=== PATIENT | female | born 1955 | race African-American/Black ===

== ENCOUNTER 2021-01-06 04:04 | Emergency (ER) | payer OTHER, MEDICARE ==
[~2021-01-06] VITALS: Ht 165.1 cm; Wt 100.0 kg
[2021-01-06] MEDS ORDERED: ONDANSETRON HCL 4MG/2ML INJ IV STA (04:26)
[2021-01-06] MEDS ORDERED: MECLIZINE 25MG TABLET PO ONE (04:30)
[2021-01-06 05:21] LABS: BASOPHILS % 0.4 % (0.0-2.0); CHLORIDE 108 mEq/L (98-107); EOSINOPHILS % 4.6 % (0.0-5.0); HEMATOCRIT. 37.1 % (36.0-48.0); LYMPHOCYTES % 36.5 % (20.0-50.0); MEAN CORPUSCULAR HEMOGLOBIN 26.7 pg (28.0-32.0); MEAN CORPUSCULAR VOLUME 82.6 fL (81.0-99.0); MEAN PLATELET VOLUME 7.5 fl (7.4-10.4); MONOCYTES % 8.8 % (2.0-8.0); NEUTROPHILS % 49.7 % (40.0-76.0); PLATELET 220 x1000/uL (130-400); RED BLOOD CELL COUNT 4.49 mill/uL (4.2-5.4); RED CELL DISTRIBUTION WIDTH 16.1 % (11.6-14.6)
[2021-01-06] MEDS ORDERED: ONDA4TAB5 MT (07:04)
[2021-01-06] MEDS ORDERED: MECL-159 MT (07:04)
[2021-01-06 07:45] VITALS: BP 135/68
== END 2021-01-06 07:50 | disposition home or self-care (01) ==
LOC: ER 04:30
DX: R42 Dizziness and giddiness (principal); I10 Essential (primary) hypertension; J45.909 Unspecified asthma, uncomplicated
CPT/HCPCS: 36415; 70450; 71045; 80053; 84484; 85025; 93005; 96374; 99285; J2405; J8597